=== PATIENT | female | born 1995 | race African-American/Black ===

== ENCOUNTER 2018-07-16 14:07 | Emergency (ER) | payer OTHER ==
[2018-07-16] MEDS ORDERED: 0.9 % SODIUM CHLORIDE 1,000 ML IV ONE ×2 (15:00→16:59)
--- NOTE | 2018-07-16 15:01 | ED Physician Documentation ---
Abdominal Pain - HISTORIAN Historian: patient - HPI Stated Complaint: Abdominal pain, nasuea, vomitting Chief Complaint: General Adult Onset: hours Timing: still present Context: denies: out of country travel Severity: moderate Quality: aching Associated Symptoms: nausea, vomiting, loss of appetite Further Comments: yes (Pt is a 23 yo female inmate who may have had a syncopal episode.) - ROS CONST: other (malaise) CVS/RESP: none EYES/ENT: none MS/SKIN/LYMPH: none NEURO/PSYCH: none - SOCIAL HX Smoking History: cigarettes Alcohol Use: occasionally Drug Use: marijuana - FAMILY HX Family History: none - PAST HX Past History: other () Surgeries/Procedures: - VITAL SIGNS Vital Signs: Vital Signs Temp Pulse Resp BP Pulse Ox 98.1 F 99 H 14 117/67 98 07/16/18 14:13 07/16/18 18:45 07/16/18 18:45 07/16/18 18:45 07/16/18 18:45 Progress - Progress Progress: NS 1 L IVF x 2 Zofran 4 mg IV 2 views of the abdomen History: KUB, ABD PAIN X3 DAYS, PT STATES HX OF No comparison studies Nonobstructive bowel gas pattern. Supine study is limited for evaluation of free intraperitoneal air. 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 Pelvic phlebolith is noted. Calcification is seen in the right upper abdomen in the paraspinal region at the level of L2 vertebral body and in the left at the level of inferior L2 vertebral body Impression: 1. Nonobstructive bowel gas pattern. 2. Rounded calcification in the right paraspinal region may be related to a gallstone versus right renal calculus. 3. Faint calcification is also noted in the left paraspinal region, indeterminate, may be related to questionable left renal calculus. CT abd/pelvis CT Abdomen/pelvis without contrast History: QUESTIONABLE STONE SEEN ON ABD XRAY abd pain No similar comparison studies Clear lung bases. No free intraperitoneal air. No acute osseous pathology Noncontrast liver gallbladder, spleen adrenal glands are within normal limits Nonobstructing left renal calculi are seen measuring approximately 3 mm, no hydronephrosis. The distal ureters are not clearly seen. Pelvic phleboliths. Prominent uterus. Normal appendix. Stomach is collapsed, no obvious bowel obst ruction Impression: 1. Nonobstructing left renal calculi. Ureters are difficult to trace. No obvious hydronephrosis. 2. Normal appendix. No bowel obstruction. Minimal fat stranding in the midabdome n. The uterus is prominent, poorly evaluated on this study. Pt improved after IVF Rx Bactrim DS 1 po q 12 h x 7 d, 1st dose in ER. ED Results Lab/Radiology - Lab Results Lab Results: Lab Results 07/16/18 07/16/18 07/16/18 Unknown Unknown Unknown WBC 4.50 K/ul K/ul (4.00-12.00) RBC 4.63 M/ul M/ul (3.90-5.20) Hgb 11.9 g/dL L g/dL (12.0-16.0) Hct 37.0 % % (34.5-46.5) MCV 80.0 fl fl (80.0-100.0) MCH 25.8 pg L pg (28.0-34.0) MCHC 32.3 g/dL g/dL (30.0-36.0) RDW 15.9 % H % (11.3-14.3) Plt Count 258 K/mm3 K/mm3 (130-400) Neut % (Auto) 64.5 % % (39.0-79.0) Lymph % (Auto) 30.0 % % (16.0-50.0) Johnston % (Auto) 4.1 % % (0.0-11.0) Eos % (Auto) 1.1 % % (0.0-6.8) Baso % (Auto) 0.3 (0.0-1.5) Neut # (Auto) 2.9 # k/uL # k/uL (1.4-7.7) Lymph # (Auto) 1.4 # k/uL # k/uL (0.6-4.0) Johnston # (Auto) 0.2 # k/uL # k/uL (0.0-0.9) Eos # (Auto) 0.1 # k/uL # k/uL (0.0-0.6) Baso # (Auto) 0.0 # k/uL # k/uL (0.0-0.5) Sodium 143 mmol/L mmol/L (136-145) Potassium 3.8 mmol/L mmol/L (3.5-5.1) Chloride 109 mmol/L H mmol/L (98-107) Carbon Dioxide 23 mmol/L mmol/L (22-30) BUN 10 mg/dL mg/dL (7-17) Creatinine 0.57 mg/dL mg/dL (0.52-1.04) Estimated Creat Clear 216 Est GFR ( Amer) > 60 (60 - ) Est GFR (Non-Af Amer) > 60 (60 - ) Glucose 116 mg/dL H mg/dL (74-106) Calcium 9.2 mg/dL mg/dL (8.4-10.2) Total Bilirubin 0.4 mg/dL mg/dL (0.2-1.3) AST 25 U/L U/L (15-46) ALT 36 U/L U/L (13-69) Alkaline Phosphatase 50 U/L U/L (38-126) Total Protein 7.8 g/dL g/dL (6.3-8.2) Albumin 4.4 g/dL g/dL (3.5-5.0) Lipase 35 U/L U/L (23-300) Urine Color Urine Appearance Urine pH Ur Specific Omega Urine Protein Urine Ketones Urine Occult Blood Urine Nitrite Urine Bilirubin Urine Urobilinogen Ur Leukocyte Esterase Urine Glucose Urine HCG, Qual 07/16/18 07/16/18 15:05 15:05 WBC RBC Hgb Hct MCV MCH MCHC RDW Plt Count Neut % (Auto) Lymph % (Auto) Johnston % (Auto) Eos % (Auto) Baso % (Auto) Neut # (Auto) Lymph # (Auto) Johnston # (Auto) Eos # (Auto) Baso # (Auto) Sodium Potassium Chloride Carbon Dioxide BUN Creatinine Estimated Creat Clear Est GFR ( Amer) Est GFR (Non-Af Amer) Glucose Calcium Total Bilirubin AST ALT Alkaline Phosphatase Total Protein Albumin Lipase Urine Color Yellow (YELLOW) Urine Appearance Clear (CLEAR) Urine pH 5.5 (5.0 - 8.0) Ur Specific Omega >=1.030 H (1.010-1.030) Urine Protein Negative mg/dL mg/dL (NEGATIVE) Urine Ketones Negative mg/dL mg/dL (NEGATIVE) Urine Occult Blood Trace-intact H (NEGATIVE) Urine Nitrite Positive H (NEGATIVE) Urine Bilirubin Negative (NEGATIVE) Urine Urobilinogen 0.2 Eu Eu (0.2-1.0) Ur Leukocyte Esterase Negative (NEGATIVE) Urine Glucose Negative mg/dL mg/dL (NEGATIVE) Urine HCG, Qual Negative (NEGATIVE) - Orders Orders: ED Orders Category Date Time Status ABDOMEN 1VIEW [RAD] Stat Exams 07/16/[address] ABD & PELVIS W/O CON Stat Exams 07/16/18 Taken CBC/PLATELET/DIFF Routine Lab 07/16/18 Completed CMP Routine Lab 07/16/18 Completed LIPASE Stat Lab 07/16/18 Completed UA MACRO DIP ONLY Routine Lab 07/16/18 15:05 Completed URINE HCG Stat Lab 07/16/18 15:05 Completed 0.9 % Sodium Chloride [Normal Saline] 1,000 ml Med 07/16/18 15:00 Discontinued IV Q1H 0.9 % Sodium Chloride [Normal Saline] 1,000 ml Med 07/16/18 16:59 Discontinued IV Q1H Ondansetron HCl/Pf [Zofran] Med 07/16/18 15:15 Discontinued 4 mg IVP NOW ONE Sulfamethoxazole/Trimethoprim [Bactrim Ds] Med 07/16/18 18:12 Discontinued 1 each PO NOW ONE Abdominal Pain Physical Exam - Physical Exam General Appearance: moderate distress EENT: pharynx normal NECK: normal inspection, supple RESPIRATORY: no resp distress, chest non-tender, breath sounds normal CVS: reg rate & rhythm, heart sounds normal ABDOMEN: soft, tenderness (lower abdomen, R of midline), decreased BS BACK: normal inspection, no CVA tenderness SKIN: warm/dry, normal color EXTREMITIES: non-tender, normal range of motion, no edema NEURO: oriented X3, motor nml, sensation nml Vital Signs: Vital Signs Temp Pulse Resp BP Pulse Ox 98.1 F 99 H 14 117/67 98 07/16/18 14:13 07/16/18 18:45 07/16/18 18:45 07/16/18 18:45 07/16/18 18:45 Discharge Clincal Impression: Abdominal pain, Dehydration UTI (urinary tract infection) Qualifiers: Urinary tract infection type: site unspecified Hematuria presence: with hematuria Qualified Code(s): N39.0 - Urinary tract infection, site not specified Referrals: Primary Doctor,No [Primary Care Provider] - Condition: Stable Disposition: 01 HOME, SELF-CARE Decision to Admit: NO Decision Time: 18:13
[2018-07-16] MEDS ORDERED: ONDANSETRON HCL/PF 4 MG/ 2ML VIAL IVP ONE (15:15)
[2018-07-16 15:38] LABS: MEAN CORPUSCULAR HEMOGLOBIN 25.8 pg (28.0-34.0)
[2018-07-16 15:39] LABS: BASOPHILS % 0.3 (0.0-1.5); EOSINOPHILS % 1.1 % (0.0-6.8); MONOCYTES % 4.1 % (0.0-11.0); NEUTROPHILS # 2.9 # k/uL (1.4-7.7)
[2018-07-16 15:58] LABS: eGFR (Non-African) > 60
[2018-07-16 16:04] LABS: APPEARANCE,URINE CLEAR (CLEAR); COLOR,URINE YELLOW (YELLOW); OCCULT BLOOD,URINE TRACE-INTACT (NEGATIVE); PH URINE 5.5 (5.0 - 8.0); UROBILINOGEN URINE 0.2 Eu (0.2-1.0)
[2018-07-16] MEDS ORDERED: SULFAMETHOXAZOLE/TRIMETHOPRIM 800/160MG TAB PO ONE (18:12)
[2018-07-16 18:49] VITALS: BP 117/67
--- NOTE | 2018-07-17 01:21 | Diagnostic Imaging Report ---
BERNARD REEVES [facility] [address] [facility] [address] [place], [place]. [address] Report Submission Date: Jul 16, 2018 6:01:41 PM AUDIO DIRECTOR Patient Study Name: TWILA ANDREWS Date: Jul 16, 2018 5:21:37 PM AUDIO DIRECTOR Modality Type: CT\SR Gender: F Description: CT ABD PELVIS W/O CO : 89 Institution: [facility] Physician: BERNARD REEVES CT Abdomen/pelvis without contrast History: QUESTIONABLE STONE SEEN ON ABD XRAY abd pain No similar comparison studies Clear lung bases. No free intraperitoneal air. No acute osseous pathology Noncontrast liver gallbladder, spleen adrenal glands are within normal limits Nonobstructing left renal calculi are seen measuring approximately 3 mm, no hydronephrosis. The distal ureters are not clearly seen. Pelvic phleboliths. Prominent uterus. Normal appendix. Stomach is collapsed, no obvious bowel obstruction Impression: 1. Nonobstructing left renal calculi. Ureters are difficult to trace. No obvious hydronephrosis. 2. Normal appendix. No bowel obstruction. Minimal fat stranding in the midabdomen. The uterus is prominent, poorly evaluated on this study Electronically signed on Jul 16, 2018 6:01:41 PM AUDIO DIRECTOR by: Rona MATA
--- NOTE | 2018-07-17 01:22 | Diagnostic Imaging Report ---
BERNARD REEVES [facility] [address] [facility] [address] [place] [id number] Report Submission Date: Jul 16, 2018 4:54:24 PM [employer] Patient Study Name: TWILA ANDREWS Date: Jul 16, 2018 4:30:53 PM [employer] Modality Type: DX Gender: F Description: ABDOMEN 1VIEW : 89 Institution: [facility] Physician: BERNARD REEVES 2 views of the abdomen History: KUB, ABD PAIN X3 DAYS, PT STATES HX OF No comparison studies Nonobstructive bowel gas pattern. Supine study is limited for evaluation of free intraperitoneal air. 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 Pelvic phlebolith is noted. Calcification is seen in the right upper abdomen in the paraspinal region at the level of L2 vertebral body and in the left at the level of inferior L2 vertebral body Impression: 1. Nonobstructive bowel gas pattern. 2. Rounded calcification in the right paraspinal region may be related to a gallstone versus right renal calculus. 3. Faint calcification is also noted in the left paraspinal region, indeterminate, may be related to questionable left renal calculus. Electronically signed on Jul 16, 2018 4:54:24 PM [employer] by: Rona MATA
== END 2018-07-16 18:49 | disposition home or self-care (01) ==
LOC: ED 14:07
DX: N39.0 Urinary tract infection, site not specified (principal); R10.9 Unspecified abdominal pain; E86.0 Dehydration
CPT/HCPCS: 36415; 74018; 74176; 80053; 81002; 81025; 83690; 85025; 99283; 99284; A9270; S1016